=== PATIENT | male | born 1960 | race Caucasian/White ===

== ENCOUNTER 2021-07-23 18:56 | Emergency (ER) | payer MEDICAID, OTHER ==
[~2021-07-23] VITALS: Ht 175.3 cm; Wt 94.3 kg
[2021-07-23 19:07] VITALS: BP 110/86
[2021-07-23] MEDS ORDERED: ONDANSETRON 4 MG/2 ML VIAL IVP ONE (19:15)
[2021-07-23] MEDS ORDERED: MORPHINE SULFATE 4 MG/ML SYR IVP ONE ×2 (19:15→21:05)
--- NOTE | 2021-07-23 19:22 | NUR ---
RAD at bedside
--- NOTE | 2021-07-23 19:27 | NUR ---
lab at bedside.
--- NOTE | 2021-07-23 19:35 | NUR ---
61 yo m bib self with c/c of RUQ pain 10/10, sharp and constant, non rad x2days. pt denies taking medication for pain. States pain began yesterday today pain became worse. denies n/v/d, sob, fever, chills. pt states he has been able to eat still. abd is soft and round, tender to touch, and bowel sounds x4. all needs met at this time. pt in gown and placed on monitor. all needs met at this time. bed locked in lowest position, side rails x2. denies hx, rx and allerg
[2021-07-23 19:37] LABS: BASOPHILS % (AUTO) 0.4 % (0.0-2.0); EOSINOPHILS # (AUTO) 0.3 K/uL (0-0.4); EOSINOPHILS % (AUTO) 3.3 % (0.0-4.0); HEMATOCRIT 48.3 % (36-52); HEMOGLOBIN 16.5 g/dL (12.0-18.0); LYMPHOCYTES % (AUTO) 22.1 % (20.5-51.1); MEAN CORPUSCULAR HEMOGLOBIN 33 pg (27-31); MEAN CORPUSCULAR HGB CONC 34 g/dL (33-37); MEAN CORPUSCULAR VOLUME 97.1 fL (80-94); MONOCYTES # (AUTO) 0.7 K/uL (0.8-1.0); MONOCYTES % (AUTO) 7.4 % (1.7-9.3); NEUTROPHILS # (AUTO) 6.2 K/uL (1.8-7.7); NEUTROPHILS % (AUTO) 66.8 % (42.2-75.2); PLATELET COUNT (AUTO) 272 K/uL (140-450); RED BLOOD CELL COUNT(AUTO) 4.97 MIL/uL (4.20-6.10); RED CELL DISTRIBUTION WIDTH 13.7 % (11.6-13.7); WHITE BLOOD COUNT (AUTO) 9.2 K/uL (4.8-10.8)
--- NOTE | 2021-07-23 19:45 | NUR ---
us at bedside.
[2021-07-23] MEDS ORDERED: KETOROLAC 30 MG/ML VIAL IVP ONE (19:50)
[2021-07-23 19:52] LABS: ALBUMIN 3.8 g/dL (3.4-5.0); ANION GAP 18.5 (8-16); CARBON DIOXIDE 27.5 mmol/L (21-32); CREATININE 1.1 mg/dL (0.6-1.3); TOTAL BILIRUBIN 0.3 mg/dL (0.0-1.0)
--- NOTE | 2021-07-23 21:42 | NUR ---
back from ct.
[2021-07-23] MEDS ORDERED: NACL 0.9% 1,000 ML IV ONE (22:00)
--- NOTE | 2021-07-23 22:27 | NUR ---
pt is awake and alert, laying back in bed. pt states pain has diminshed 4/10. all needs met at this time. bed locked in lowest position, side rails x2.
--- NOTE | 2021-07-23 22:43 | NUR ---
pt ambulated to with steady gait. urine specimen collected.
[2021-07-23 23:12] LABS: APPEARANCE,URINE CLEAR (CLEAR); BILIRUBIN,URINE NEGATIVE (NEGATIVE); BLOOD, URINE NEGATIVE (NEGATIVE); COLOR,URINE ORANGE (YELLOW); LEUKOCYTE ESTERASE ,URINE NEGATIVE (NEGATIVE); NITRITE, URINE NEGATIVE (NEGATIVE); UGLUCOSE NEGATIVE (NEGATIVE)
--- NOTE | 2021-07-24 | NUR ---
swab collected and taken to lab.
[2021-07-24] MEDS ORDERED: REGENERON ANTIBODY ER ORDER 1 EA MISC MC ONE (00:20)
[2021-07-24] MEDS ORDERED: AZITHROMYCIN 500 MG in DEXTROSE 5% 250 ML IV ONE (00:20)
[2021-07-24] MEDS ORDERED: AZITHROMYCIN 500 MG INJ VIAL IV ONE (00:37)
[2021-07-24] MEDS ORDERED: LEVO750T51 PO (00:51)
[2021-07-24] MEDS ORDERED: AMOX-1000 PO (00:51)
--- NOTE | 2021-07-24 02:00 | NUR ---
pt is awake and alert, in stable condition. respiratory rate is decreased to 7. when pt sits up it raises to 13. pt stated it hurts him to take a full deep breath. ermd made aware.
[2021-07-24] MEDS ORDERED: cefTRIAXone 1,000 MG VIAL ONE (02:29)
[2021-07-24] MEDS ORDERED: KETOROLAC 30 MG/ML VIAL IVP ONE (02:40)
[2021-07-24] MEDS ORDERED: KETOROLAC 30 MG/ML VIAL ONE (02:40)
[2021-07-24 03:27] VITALS: BP 105/66
--- NOTE | 2021-07-24 03:27 | NUR ---
Patient discharged with v/s stable. Written and verbal after care instructions given and explained. Patient alert, oriented and verbalized understanding of instructions. Ambulatory with steady gait. All questions addressed prior to discharge. ID band removed. Patient advised to follow up with PMD. Rx of augmentin, levofloxacin, and naprosyn given. Patient educated on indication of medication including possible reaction and side effects. Opportunity to ask questions provided and answered.
== END 2021-07-24 03:27 | disposition home or self-care (01) ==
LOC: MED 18:56
DX: R10.11 Right upper quadrant pain (principal); Z20.822 Contact with and (suspected) exposure to COVID-19; R11.0 Nausea
CPT/HCPCS: 36415; 71045; 74177; 76705; 80053; 81003; 83690; 84484; 85025; 87040; 87426; 93005; 96361; 96365; 96375; 96376; 99285; J0456; J0696; J1885; J2270; J2405; Q0092; Q9967